=== PATIENT | male | born 1985 | race Caucasian/White ===

== ENCOUNTER 2016-10-28 19:23 | Emergency (ER) | payer MEDICAID ==
[~2016-10-28] VITALS: Ht 182.9 cm; Wt 83.9 kg
[2016-10-28 19:25] VITALS: BP 130/88; PULSE 70; RESP 18; TEMP 98; O2SAT 100
--- NOTE | 2016-10-28 19:25 | NUR ---
Patient to ER bed 4 to gown for evaluation. Side rails up. Report given to Nehemiah VAUGHN.
--- NOTE | 2016-10-28 19:35 | NUR ---
Pt states that in the past two weeks, pt has been having generalized weakness for the past two weeks. Increased tiredness and has been having a lot of stress due to high stress job. States today he had a near syncopal episode and wanted to get checked out. 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 No other injuries or complaints mentioned/noted. No distress noted.
--- NOTE | 2016-10-28 20:00 | NUR ---
# 20 gauge angiocath placed to L AC. Use of asceptic technique. Opsite placed over site. Blood return noted. Blood for lab drawn from site. Flushed with 10 cc of normal saline. No evidence of infiltration noted. Patient tolerated well.
--- NOTE | 2016-10-28 20:10 | NUR ---
ER Dr. Danielle at bedside examining patient.
[2016-10-28] MEDS ORDERED: PROCHLORPERAZINE EDISYLATE 10 MG/2 ML VIAL IVP ONE (20:45)
[2016-10-28] MEDS ORDERED: KETOROLAC TROMETHAMINE 30 MG VIAL IVP ONE (20:45)
[2016-10-28] MEDS ORDERED: DEXAMETHASONE SOD PHOSPHATE 10 MG/ML VIAL IVP ONE (20:45)
[2016-10-28 20:49] LABS: BASOPHILS % (AUTO) 0.6 % (0.0-2.0); EOSINOPHILS % (AUTO) 0.6 % (0.0-4.0); HEMATOCRIT 49.4 % (36-54); HEMOGLOBIN 16.3 g/dL (14.0-18.0); LYMPHOCYTES # (AUTO) 2.3 K/uL (1.0-5.5); LYMPHOCYTES % (AUTO) 37.5 % (20.5-51.5); MEAN CORPUSCULAR HEMOGLOBIN 30 pg (27-31); MEAN CORPUSCULAR HGB CONC 33 % (32-36); MEAN CORPUSCULAR VOLUME 91 fL (79.0-98.0); MONOCYTES # (AUTO) 0.5 K/uL (0.0-1.0); MONOCYTES % (AUTO) 7.6 % (1.7-9.3); NEUTROPHILS # (AUTO) 3.2 K/uL (1.8-7.7); NEUTROPHILS % (AUTO) 53.7 % (40.0-70.0); PLATELET COUNT (AUTO) 327 K/uL (130-430); RED BLOOD CELL COUNT(AUTO) 5.42 MIL/uL (4.2-6.2); RED CELL DISTRIBUTION WIDTH 12.4 % (9.0-15.0)
[2016-10-28 20:56] LABS: CALCIUM 9.5 mg/dL (8.4-11.0); CREATININE 0.92 mg/dL (0.55-1.30); POTASSIUM 3.7 mmol/L (3.5-5.1)
[2016-10-28 20:59] LABS: PROTHROMBIN TIME 10.5 SECS (9.5-12.5)
[2016-10-28 21:04] LABS: TOTAL BILIRUBIN 0.6 mg/dL (0.0-1.0)
[2016-10-28 21:05] LABS: ALBUMIN 4.5 g/dL (3.4-4.8); TOTAL PROTEIN, SERUM 8.2 g/dL (6.4-8.3)
[2016-10-28 21:50] VITALS: BP 133/59; PULSE 72; RESP 18; TEMP 98
--- NOTE | 2016-10-28 21:50 | NUR ---
Patient given written and verbal discharge instructions and verbalizes understanding. ER MD discussed with patient the results and treatment provided. Patient in stable condition. ID arm band removed. IV catheter removed intact and dressing applied, no active bleeding. Patient educated on pain management and to follow up with PMD. Pain Scale 0/10. Opportunity for questions provided and answered.
[2016-11-03 08:03] VITALS: O2SAT 100
== END 2016-10-28 21:50 | disposition home or self-care (01) ==
LOC: SED 19:23
DX: F41.9 Anxiety disorder, unspecified (principal); R53.1 Weakness
CPT/HCPCS: 36415; 71010; 80053; 82962; 83605; 84484; 85025; 85610; 85730; 87040; 93005; 96374; 96375; 99285; J0780; J1100; J1885